=== PATIENT | female | born 1995 | race Caucasian/White ===

== ENCOUNTER 2018-12-26 18:40 | Observation (INO) | payer OTHER ==
[2018-12-26 19:18] VITALS: O2SAT 100
[2018-12-26] MEDS ORDERED: TYLENOL 325 MG ONE (21:05)
[2018-12-26] MEDS ORDERED: TYLENOL 325 MG PO PRN (21:05)
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
[2018-12-27 02:45] VITALS: BP 95/66; PULSE 66
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
== END 2018-12-27 00:31 | disposition home or self-care (01) ==
LOC: OB 18:40
PROVIDERS: ADMIT Family Medicine; ATTEND Family Medicine
DX: R10.9 Unspecified abdominal pain (principal); M54.6 Pain in thoracic spine; Z33.1 Pregnant state, incidental; V43.52XA Car driver injured in collision with other type car in traffic accident, initial encounter
CPT/HCPCS: 72080; G0378; A9270-GY

== ENCOUNTER 2020-10-13 07:03 | Day surgery (SDC) | payer OTHER ==
[2020-10-13] MEDS ORDERED: CEFAZOLIN 2 GM-D5W BAG** 2 GM/50 ML ML IV ONE (07:30)
[2020-10-13] MEDS ORDERED: Lactated Ringers 1,000 ML IV SCH (07:30)
[2020-10-13] MEDS ORDERED: CEFAZOLIN 2 GM-D5W BAG** 2 GM/50 ML ML IV SCH (07:30)
[2020-10-13] MEDS ORDERED: Lactated Ringers 1,000 ML IV ONE (07:30)
[2020-10-13] MEDS ORDERED: SUBLIMAZE 100 MCG/2 ML ONE ×2 (10:32→12:07)
[2020-10-13] MEDS ORDERED: Zofran 4 MG/2 ML VIAL ONE (10:32)
[2020-10-13] MEDS ORDERED: Decadron 4 MG INJ ONE (10:32)
[2020-10-13] MEDS ORDERED: Xylocaine-Mpf 2% 5 Ml Vial ONE (10:32)
[2020-10-13] MEDS ORDERED: DIPRIVAN 200 MG/20 ML IV ONE (10:32)
[2020-10-13] MEDS ORDERED: Compazine 10 MG/2 ML ONE (12:12)
[2020-10-13 13:04] VITALS: O2SAT 100
[2020-10-13 13:12] VITALS: BP 116/61; PULSE 75
--- NOTE | 2020-10-14 10:33 | OP ---
SURGERY DATE: 10/13/2020 SURGERY TIME: 1117 PREOPERATIVE DIAGNOSIS: 1. MENORRHAGIA WITH HISTORY OF DIDELPHYS UTERUS. POSTOPERATIVE DIAGNOSIS: 1. MENORRHAGIA WITH HISTORY OF DIDELPHYS UTERUS. PROCEDURE: 1. Hysteroscopy D&C with NovaSure ablation. SURGEON: Dr. Jesus Chadwick. STONE SETTER APPRENTICE: Tashi Tomas surgical scrub tech. ANESTHESIA: General. ESTIMATED BLOOD LOSS: Minimal. COMPLICATIONS: None. FINDINGS: The risks, benefits, indications, and alternatives of the procedure were reviewed with the patient prior to the procedure. Patient understood the risk of infection, bleeding, bowel injury, bladder injury, ureteral injury, uterine perforation, pelvic infection, thromboembolic disorder associated with this procedure. However, desires to have this procedure as a possible means to alleviate her current medical condition. DESCRIPTION OF PROCEDURE: At this point, the patient was taken to the OR, given general sedation, placed in the dorsal lithotomy position, prepped and draped in the usual sterile fashion. A weighted speculum was then placed in the patient's vagina and the anterior lip of the cervix was grasped with the single toothed tenaculum. There were 2 cervices that were noted due to her history of didelphys uterus where dilation of both was obtained and a 5 mm hysteroscope was placed into the endocervical canal region on both regions on both sides where a septum divided both sides of the uterus. Upon visualization, no gross abnormalities were noted other than the ostia was noted on her left side and there were no gross abnormalities on the surface with the septum the 2 sides and on her right side, the right ostia were noted and no gross abnormalities noted on that side. From this point, a curette was then placed into the fundal region of the uterus on both sides where curettage was performed retrieving a moderate amount of tissue on both sides. From this point, the NovaSure was then introduced and taken through the endocervical canal where on her left side the length was measured at 5.5 cm and the NovaSure was placed toward the fundal region retracting approximately 1 cm. It was engaged with the width of 2.6 cm and NovaSure was turned on for an ablated time of 1 minute, 36 seconds. After completion, the instrument was disengaged and removed from the uterine cavity where at this point, the right side of her uterus was subsequently ablated with the instrument placed on the right side with a length of 5.5 cm and the width of 2.6 cm. the ablated time took 50 seconds on her right side and we done so without complication. From this point, the instrument was disengaged and removed from the right uterine cavity. From this point, all instruments were then removed from the patient's vaginal region. The patient then taken out of the dorsal lithotomy position, was taken out of anesthesia, and was then taken to the recovery room in stable condition. All instruments and laps were accounted for X 2.
== END 2020-10-13 13:04 | disposition home or self-care (01) ==
LOC: SDC 07:03
PROVIDERS: ATTEND Obstetrics & Gynecology
DX: N92.0 Excessive and frequent menstruation with regular cycle (principal); Q51.10 Doubling of uterus with doubling of cervix and vagina without obstruction
CPT/HCPCS: 58558; 84703; J0690; J1100; J2405; J2704; J3010

== ENCOUNTER 2022-04-19 06:01 | Observation (INO) | payer OTHER, BC ==
[2022-04-19] MEDS ORDERED: Lactated Ringers 1,000 ML IV SCH (06:30)
[2022-04-19] MEDS ORDERED: CEFAZOLIN 2 GM-D5W BAG** 2 GM/50 ML ML IV SCH (06:30)
[2022-04-19 07:50] LABS: ABO TYPING O; Antibody Screen NEGATIVE (NEGATIVE); RH TYPING POSITIVE
[2022-04-19 07:52] LABS: ALBUMIN 4.1 g/dL (3.5-5.0); ALKALINE PHOSPHATASE 68 U/L (38-126); ANION GAP 6.3 MEQ/L (5-15); BLOOD UREA NITROGEN 8 mg/dL (7-17); CHLORIDE 107 mmol/L (98-107); Calcium 8.8 mg/dL (8.4-10.2); Carbon Dioxide 28 mmol/L (22-30); Creatinine 1 0.58 mg/dL (0.52-1.04); EST GLOMERULAR FILTRATION RATE > 60.0 ML/MIN; Glucose 95 mg/dL (74-106); Potassium 4.1 mmol/L (3.5-5.1); SGOT/AST 20 U/L (14-36); SGPT/ALT 16 U/L (0-35); SODIUM 137 mmol/L (137-145); Total Protein 6.8 g/dL (6.3-8.2)
[2022-04-19 08:03] LABS: INFLUENZA A NEGATIVE (NEGATIVE); INFLUENZA B NEGATIVE (NEGATIVE); RESPIRATORY SYNCTIAL VIRUS NEGATIVE (Negative); SARS-CoV-2 Xpert Express NEGATIVE (NEGATIVE)
[2022-04-19] MEDS ORDERED: Sensorcaine 0.25% 10 ML ONE (08:07)
[2022-04-19 08:25] LABS: Hematocrit 42.2 % (35-47); Hemoglobin 13.6 g/dL (12.0-16.0); Mean Corpuscular Hemoglobin 31.3 pg (26-32); Mean Corpuscular Hgb Concent. 32.2 g/dL (32-36); Mean Platelet Volume 11.8 fL (7.5-11.0); Platelet Count 139 x10^3/uL (150-450); Red Blood Count 4.35 x10^6/uL (4.1-5.4); Red Cell Distribution Width 11.8 % (11.5-14.0); White Blood Count 8.1 x10^3/uL (4.0-10.5)
[2022-04-19] MEDS ORDERED: Astramorph-Pf 5 MG/10 ML ONE (08:42)
[2022-04-19] MEDS ORDERED: SUBLIMAZE 100 MCG/2 ML ONE (08:42)
[2022-04-19] MEDS ORDERED: BRIDION 200MG/2ML IV ONE (08:42)
[2022-04-19] MEDS ORDERED: Zofran 4 MG/2 ML VIAL ONE (08:42)
[2022-04-19] MEDS ORDERED: Xylocaine-Mpf 2% 5 Ml Vial ONE (08:42)
[2022-04-19] MEDS ORDERED: Decadron 4 MG INJ ONE ×2 (08:42→09:22)
[2022-04-19] MEDS ORDERED: Transderm Scop 1.5MG Patch TOP ONE (08:42)
[2022-04-19] MEDS ORDERED: DIPRIVAN 200 MG/20 ML IV ONE (08:42)
[2022-04-19] MEDS ORDERED: Zemuron 100 MG/10 ML ONE (08:42)
[2022-04-19] MEDS ORDERED: TORAdol 30 mg Injection ONE (08:42)
[2022-04-19] MEDS ORDERED: Versed 2 MG/2 ML Injection ONE (08:44)
[2022-04-19] MEDS ORDERED: Lactated Ringers 1,000 ML IV ONE (09:11)
[2022-04-19] MEDS ORDERED: BENADRYL 50 MG/ML ONE (09:13)
[2022-04-19] MEDS ORDERED: DEXMEDETOMIDINE 80 MCG/20ML-NS IV ONE (09:22)
[2022-04-19] MEDS ORDERED: Marcaine 0.5%/Epinephrine 10 ML ONE (09:22)
[2022-04-19] MEDS ORDERED: Zofran 4 MG/2 ML VIAL IV PRN (13:37)
[2022-04-19] MEDS ORDERED: TORAdol 30 mg Injection IV PRN (13:38)
[2022-04-19] MEDS: Mylicon 80MG PO SCH ×2 (13:46→20:39)
[2022-04-19] MEDS: Reglan 10 MG/2 ML IV SCH ×2 (13:46→20:39)
[2022-04-19] MEDS: Lactated Ringers 1,000 ML IV SCH ×2 (13:47→20:39)
[2022-04-19] MEDS: CEFAZOLIN 2 GM-D5W BAG** 2 GM/50 ML ML IV SCH ×2 (15:59→23:53)
[2022-04-19 18:11] LABS: Absolute Neutrophil Ct (ANC) 12.12 x10^3/uL (1.4-6.9); Basophil (Absolute #) 0.01 x10^3/uL (0-0.4); Eosinophil (Absolute #) 0 x10^3/uL (0-0.5); Hematocrit 37.7 % (35-47); Hemoglobin 12.4 g/dL (12.0-16.0); Lymphocyte (Absolute #) 0.39 x10^3/uL (1.0-4.6); Lymphocytes % 3.1 % (24.0-44.0); Mean Cell Volume 94.5 fL (78-100); Mean Corpuscular Hemoglobin 31.1 pg (26-32); Mean Corpuscular Hgb Concent. 32.9 g/dL (32-36); Mean Platelet Volume 10.7 fL (7.5-11.0); Monocyte (Absolute #) 0.17 x10^3/uL (0.0-1.3); Monocytes % 1.3 % (0.0-12.0); Neutrophil % 95.1 % (36.0-66.0); Red Blood Count 3.99 x10^6/uL (4.1-5.4); Red Cell Distribution Width 11.6 % (11.5-14.0); White Blood Count 12.7 x10^3/uL (4.0-10.5)
[2022-04-19 18:12] LABS: Platelet Count 222 x10^3/uL (150-450)
[2022-04-19] MEDS ORDERED: Docusate Sodium 100 MG PO SCH (22:00)
[2022-04-19 22:48] LABS: Slide Review 1 YES
[2022-04-20 05:05] LABS: Absolute Neutrophil Ct (ANC) 11.05 x10^3/uL (1.4-6.9); Basophil (Absolute #) 0.01 x10^3/uL (0-0.4); Eosinophil % 0.1 % (0.00-5.0); Eosinophil (Absolute #) 0.01 x10^3/uL (0-0.5); Hemoglobin 10.8 g/dL (12.0-16.0); Lymphocyte (Absolute #) 1.34 x10^3/uL (1.0-4.6); Lymphocytes % 10.1 % (24.0-44.0); Mean Cell Volume 94.8 fL (78-100); Mean Corpuscular Hgb Concent. 32.7 g/dL (32-36); Mean Platelet Volume 10.4 fL (7.5-11.0); Monocyte (Absolute #) 0.88 x10^3/uL (0.0-1.3); Monocytes % 6.6 % (0.0-12.0); Neutrophil % 82.9 % (36.0-66.0); Platelet Count 166 x10^3/uL (150-450); Red Blood Count 3.48 x10^6/uL (4.1-5.4); Red Cell Distribution Width 11.8 % (11.5-14.0); White Blood Count 13.3 x10^3/uL (4.0-10.5)
[2022-04-20] MEDS: Mylicon 80MG PO SCH (05:06)
[2022-04-20] MEDS: Reglan 10 MG/2 ML IV SCH (05:07)
[2022-04-20 05:19] LABS: ALBUMIN 3.1 g/dL (3.5-5.0); ALKALINE PHOSPHATASE 55 U/L (38-126); ANION GAP 6.6 MEQ/L (5-15); BLOOD UREA NITROGEN 7 mg/dL (7-17); CHLORIDE 106 mmol/L (98-107); Calcium 8.5 mg/dL (8.4-10.2); Carbon Dioxide 24 mmol/L (22-30); Creatinine 1 0.53 mg/dL (0.52-1.04); EST GLOMERULAR FILTRATION RATE > 60.0 ML/MIN; Glucose 127 mg/dL (74-106); Potassium 3.8 mmol/L (3.5-5.1); SGOT/AST 24 U/L (14-36); SGPT/ALT 19 U/L (0-35); SODIUM 133 mmol/L (137-145); Total Protein 5.5 g/dL (6.3-8.2)
[2022-04-20] MEDS: Lactated Ringers 1,000 ML IV SCH (06:21)
[2022-04-20 07:47] VITALS: BP 104/58; PULSE 60; O2SAT 98
--- NOTE | 2022-04-20 07:51 | PCM.NOTE ---
Date and Time: 04/20/22747 Subjective Assessment: pod 1 pt resting in bed able to ambulate and tolerate diet. vss afebrile abd; soft incision c/d/intact ext; no clubbing cyanosis or edema hgb; 10.8 a/p sp laparotomy supracervical hysterectomy stable for discharge today should fu in office next monday Objective Exam Wound Assessment: Skin/Wound Assessment Wound/Incision Assessment Start: 04/19/22 11:13 Text: Status: Active Freq: Q4H Protocol: Document 04/20/22 03:41 KS (Rec: 04/20/22 03:42 KS [id number]) Wound/Incision Assessment Lower Abdomen Wound Assessment Shift Assessment Wound Type Incision Drainage Amount None Comment dressing to lower abd CDi. OBJECTIVE DATA Vital Signs: Vital Signs - 24 hr Temp Pulse Resp BP Pulse Ox 04/20/22 07:46 97.7 F 60 18 104/58 98 04/20/22 04:00 96.9 F 56 L 20 89/46 97 04/20/22 00:00 97.8 F 62 16 90/54 95 04/19/22 23:55 18 04/19/22 20:00 98.6 F 69 20 104/59 94 L 04/19/22 16:00 14 04/19/22 15:11 98.9 F 84 14 108/57 97 04/19/22 12:50 97.5 F 67 16 105/61 93 L 04/19/22 12:15 97.3 F 68 16 96/61 89 L 04/19/22 12:00 14 04/19/22 11:45 97.9 F 63 16 105/63 94 L 04/19/22 11:30 97.9 F 73 16 110/67 93 L 04/19/22 11:25 97.9 F 73 16 110/67 93 L Pain Assessment - Last Documented Pain Intensity 7 Intake and Output: Intake & Output 04/17/22 04/18/22 04/19/22 04/20/22 11:59 11:59 11:59 11:59 Intake Total 0 0 3471 Output Total 1625 Balance 0 0 1846 Weight 88.9 kg Lab Results: Lab Results-Last 24 Hours 04/19/22 04/19/22 04/19/22 Range/Units 06:41 06:41 06:41 WBC 8.1 (4.0-10.5) x10^3/uL RBC 4.35 (4.1-5.4) x10^6/uL Hgb 13.6 (12.0-16.0) g/dL Hct 42.2 (35-47) % MCV 97.0 (78-100) fL MCH 31.3 (26-32) pg MCHC 32.2 (32-36) g/dL RDW 11.8 (11.5-14.0) % Plt Count 139 L (150-450) x10^3/uL MPV 11.8 H (7.5-11.0) fL Gran % (36.0-66.0) % Immature Gran % (Auto) (0.00-0.4) % Nucleat RBC Rel Count (0.00-0.1) % Eos # (Auto) (0-0.5) x10^3/uL Immature Gran # (Auto) (0.00-0.03) x10^3u/L Absolute Lymphs (auto) (1.0-4.6) x10^3/uL Absolute Monos (auto) (0.0-1.3) x10^3/uL Absolute Nucleated RBC (0.00-0.01) x10^3u/L Lymphocytes % (24.0-44.0) % Monocytes % (0.0-12.0) % Eosinophils % (0.00-5.0) % Basophils % (0.0-0.4) % Absolute Granulocytes (1.4-6.9) x10^3/uL Basophils # (0-0.4) x10^3/uL Sodium 137 (137-145) mmol/L Potassium 4.1 (3.5-5.1) mmol/L Chloride 107 (98-107) mmol/L Carbon Dioxide 28 (22-30) mmol/L Anion Gap 6.3 (5-15) MEQ/L BUN 8 (7-17) mg/dL Creatinine 0.58 (0.52-1.04) mg/dL Estimated GFR > 60.0 ML/MIN Glucose 95 (74-106) mg/dL Calcium 8.8 (8.4-10.2) mg/dL Total Bilirubin 0.30 (0.2-1.3) mg/dL AST 20 (14-36) U/L ALT 16 (0-35) U/L Alkaline Phosphatase 68 (38-126) U/L Serum Total Protein 6.8 (6.3-8.2) g/dL Albumin 4.1 (3.5-5.0) g/dL Influenza Type A Ag (NEGATIVE) Influenza Type B Ag (NEGATIVE) RSV (PCR) (Negative) SARS-CoV-2 (PCR) (NEGATIVE) Slides for Path Review ABO Group O Rh Factor POSITIVE Antibody Screen NEGATIVE (NEGATIVE) 04/19/22 04/19/22 04/20/22 Range/Units 06:50 17:47 04:56 WBC 12.7 H 13.3 H (4.0-10.5) x10^3/uL RBC 3.99 L 3.48 L (4.1-5.4) x10^6/uL Hgb 12.4 10.8 L (12.0-16.0) g/dL Hct 37.7 33.0 L (35-47) % MCV 94.5 94.8 (78-100) fL MCH 31.1 31.0 (26-32) pg MCHC 32.9 32.7 (32-36) g/dL RDW 11.6 11.8 (11.5-14.0) % Plt Count 222 D 166 (150-450) x10^3/uL MPV 10.7 10.4 (7.5-11.0) fL Gran % 95.1 H 82.9 H (36.0-66.0) % Immature Gran % (Auto) 0.4 0.2 (0.00-0.4) % Nucleat RBC Rel Count 0.0 0.0 (0.00-0.1) % Eos # (Auto) 0 0.01 (0-0.5) x10^3/uL Immature Gran # (Auto) 0.05 H 0.03 (0.00-0.03) x10^3u/L Absolute Lymphs (auto) 0.39 L 1.34 (1.0-4.6) x10^3/uL Absolute Monos (auto) 0.17 0.88 (0.0-1.3) x10^3/uL Absolute Nucleated RBC 0.00 0.00 (0.00-0.01) x10^3u/L Lymphocytes % 3.1 L 10.1 L (24.0-44.0) % Monocytes % 1.3 6.6 (0.0-12.0) % Eosinophils % 0.0 0.1 (0.00-5.0) % Basophils % 0.1 0.1 (0.0-0.4) % Absolute Granulocytes 12.12 H 11.05 H (1.4-6.9) x10^3/uL Basophils # 0.01 0.01 (0-0.4) x10^3/uL Sodium (137-145) mmol/L Potassium (3.5-5.1) mmol/L Chloride (98-107) mmol/L Carbon Dioxide (22-30) mmol/L Anion Gap (5-15) MEQ/L BUN (7-17) mg/dL Creatinine (0.52-1.04) mg/dL Estimated GFR ML/MIN Glucose (74-106) mg/dL Calcium (8.4-10.2) mg/dL Total Bilirubin (0.2-1.3) mg/dL AST (14-36) U/L ALT (0-35) U/L Alkaline Phosphatase (38-126) U/L Serum Total Protein (6.3-8.2) g/dL Albumin (3.5-5.0) g/dL Influenza Type A Ag NEGATIVE (NEGATIVE) Influenza Type B Ag NEGATIVE (NEGATIVE) RSV (PCR) NEGATIVE (Negative) SARS-CoV-2 (PCR) NEGATIVE (NEGATIVE) Slides for Path Review YES ABO Group Rh Factor Antibody Screen (NEGATIVE) 04/20/22 Range/Units 04:56 WBC (4.0-10.5) x10^3/uL RBC (4.1-5.4) x10^6/uL Hgb (12.0-16.0) g/dL Hct (35-47) % MCV (78-100) fL MCH (26-32) pg MCHC (32-36) g/dL RDW (11.5-14.0) % Plt Count (150-450) x10^3/uL MPV (7.5-11.0) fL Gran % (36.0-66.0) % Immature Gran % (Auto) (0.00-0.4) % Nucleat RBC Rel Count (0.00-0.1) % Eos # (Auto) (0-0.5) x10^3/uL Immature Gran # (Auto) (0.00-0.03) x10^3u/L Absolute Lymphs (auto) (1.0-4.6) x10^3/uL Absolute Monos (auto) (0.0-1.3) x10^3/uL Absolute Nucleated RBC (0.00-0.01) x10^3u/L Lymphocytes % (24.0-44.0) % Monocytes % (0.0-12.0) % Eosinophils % (0.00-5.0) % Basophils % (0.0-0.4) % Absolute Granulocytes (1.4-6.9) x10^3/uL Basophils # (0-0.4) x10^3/uL Sodium 133 L (137-145) mmol/L Potassium 3.8 (3.5-5.1) mmol/L Chloride 106 (98-107) mmol/L Carbon Dioxide 24 (22-30) mmol/L Anion Gap 6.6 (5-15) MEQ/L BUN 7 (7-17) mg/dL Creatinine 0.53 (0.52-1.04) mg/dL Estimated GFR > 60.0 ML/MIN Glucose 127 H (74-106) mg/dL Calcium 8.5 (8.4-10.2) mg/dL Total Bilirubin 0.20 (0.2-1.3) mg/dL AST 24 (14-36) U/L ALT 19 (0-35) U/L Alkaline Phosphatase 55 (38-126) U/L Serum Total Protein 5.5 L (6.3-8.2) g/dL Albumin 3.1 L (3.5-5.0) g/dL Influenza Type A Ag (NEGATIVE) Influenza Type B Ag (NEGATIVE) RSV (PCR) (Negative) SARS-CoV-2 (PCR) (NEGATIVE) Slides for Path Review ABO Group Rh Factor Antibody Screen (NEGATIVE) Assessment/Plan (1) History of abdominal supracervical subtotal hysterectomy Current Visit: Yes Status: Acute Code(s): Z90.711 - ACQUIRED ABSENCE OF UTERUS WITH REMAINING CERVICAL STUMP (2) S/P abdominal supracervical subtotal hysterectomy Current Visit: Yes Status: Acute Code(s): Z90.711 - ACQUIRED ABSENCE OF UTERUS WITH REMAINING CERVICAL STUMP (3) Abnormal uterine bleeding Current Visit: Yes Status: Acute Code(s): N93.9 - ABNORMAL UTERINE AND VAGINAL BLEEDING, UNSPECIFIED
--- NOTE | 2022-04-20 07:58 | PCM.DS ---
Discharge Summary Date of Admission: 04/19/22 06:16 Admitting Physician: KENDRA MONTGOMERY DO Primary Care Provider: PAUL DICK Allergies Allergies No Known Drug Allergies Allergy (Verified 04/19/22 11:20) Hospital Summary - Hospital Course Hospital Course: pt admitted on apr 19 for undergoing laparotomy supracervical hysterectomy for abnormal uterine bleeding and postablation sterilization syndrome. pt underwent procedure without complication and was able to ambulate and tolerate diet. stable hgb 10.8 and was advised to fu in office in 1 wk for incision check. all questions answered to her satisfaction. pt given norco for pain management and zofran for nausea. - Vitals & Intake/Output Vital Signs: Vital Signs Temperature 97.7 F 04/20/22 07:46 Pulse Rate 60 04/20/22 07:46 Respiratory Rate 18 04/20/22 07:46 Blood Pressure 104/58 04/20/22 07:46 O2 Sat by Pulse Oximetry 98 04/20/22 07:46 Intake & Output: Intake & Output 04/17/22 04/18/22 04/19/22 04/20/22 11:59 11:59 11:59 11:59 Intake Total 0 0 3471 Output Total 1625 Balance 0 0 1846 Weight 88.9 kg - Lab Result Diagrams: 04/20/22 04:56 04/20/22 04:56 Lab Results-Last 24 Hrs: Lab Results-Last 24 Hours 04/19/22 04/19/22 04/19/22 Range/Units 06:41 06:41 06:50 WBC 8.1 (4.0-10.5) x10^3/uL RBC 4.35 (4.1-5.4) x10^6/uL Hgb 13.6 (12.0-16.0) g/dL Hct 42.2 (35-47) % MCV 97.0 (78-100) fL MCH 31.3 (26-32) pg MCHC 32.2 (32-36) g/dL RDW 11.8 (11.5-14.0) % Plt Count 139 L (150-450) x10^3/uL MPV 11.8 H (7.5-11.0) fL Gran % (36.0-66.0) % Immature Gran % (Auto) (0.00-0.4) % Nucleat RBC Rel Count (0.00-0.1) % Eos # (Auto) (0-0.5) x10^3/uL Immature Gran # (Auto) (0.00-0.03) x10^3u/L Absolute Lymphs (auto) (1.0-4.6) x10^3/uL Absolute Monos (auto) (0.0-1.3) x10^3/uL Absolute Nucleated RBC (0.00-0.01) x10^3u/L Lymphocytes % (24.0-44.0) % Monocytes % (0.0-12.0) % Eosinophils % (0.00-5.0) % Basophils % (0.0-0.4) % Absolute Granulocytes (1.4-6.9) x10^3/uL Basophils # (0-0.4) x10^3/uL Sodium 137 (137-145) mmol/L Potassium 4.1 (3.5-5.1) mmol/L Chloride 107 (98-107) mmol/L Carbon Dioxide 28 (22-30) mmol/L Anion Gap 6.3 (5-15) MEQ/L BUN 8 (7-17) mg/dL Creatinine 0.58 (0.52-1.04) mg/dL Estimated GFR > 60.0 ML/MIN Glucose 95 (74-106) mg/dL Calcium 8.8 (8.4-10.2) mg/dL Total Bilirubin 0.30 (0.2-1.3) mg/dL AST 20 (14-36) U/L ALT 16 (0-35) U/L Alkaline Phosphatase 68 (38-126) U/L Serum Total Protein 6.8 (6.3-8.2) g/dL Albumin 4.1 (3.5-5.0) g/dL Influenza Type A Ag NEGATIVE (NEGATIVE) Influenza Type B Ag NEGATIVE (NEGATIVE) RSV (PCR) NEGATIVE (Negative) SARS-CoV-2 (PCR) NEGATIVE (NEGATIVE) Slides for Path Review 04/19/22 04/20/22 04/20/22 Range/Units 17:47 04:56 04:56 WBC 12.7 H 13.3 H (4.0-10.5) x10^3/uL RBC 3.99 L 3.48 L (4.1-5.4) x10^6/uL Hgb 12.4 10.8 L (12.0-16.0) g/dL Hct 37.7 33.0 L (35-47) % MCV 94.5 94.8 (78-100) fL MCH 31.1 31.0 (26-32) pg MCHC 32.9 32.7 (32-36) g/dL RDW 11.6 11.8 (11.5-14.0) % Plt Count 222 D 166 (150-450) x10^3/uL MPV 10.7 10.4 (7.5-11.0) fL Gran % 95.1 H 82.9 H (36.0-66.0) % Immature Gran % (Auto) 0.4 0.2 (0.00-0.4) % Nucleat RBC Rel Count 0.0 0.0 (0.00-0.1) % Eos # (Auto) 0 0.01 (0-0.5) x10^3/uL Immature Gran # (Auto) 0.05 H 0.03 (0.00-0.03) x10^3u/L Absolute Lymphs (auto) 0.39 L 1.34 (1.0-4.6) x10^3/uL Absolute Monos (auto) 0.17 0.88 (0.0-1.3) x10^3/uL Absolute Nucleated RBC 0.00 0.00 (0.00-0.01) x10^3u/L Lymphocytes % 3.1 L 10.1 L (24.0-44.0) % Monocytes % 1.3 6.6 (0.0-12.0) % Eosinophils % 0.0 0.1 (0.00-5.0) % Basophils % 0.1 0.1 (0.0-0.4) % Absolute Granulocytes 12.12 H 11.05 H (1.4-6.9) x10^3/uL Basophils # 0.01 0.01 (0-0.4) x10^3/uL Sodium 133 L (137-145) mmol/L Potassium 3.8 (3.5-5.1) mmol/L Chloride 106 (98-107) mmol/L Carbon Dioxide 24 (22-30) mmol/L Anion Gap 6.6 (5-15) MEQ/L BUN 7 (7-17) mg/dL Creatinine 0.53 (0.52-1.04) mg/dL Estimated GFR > 60.0 ML/MIN Glucose 127 H (74-106) mg/dL Calcium 8.5 (8.4-10.2) mg/dL Total Bilirubin 0.20 (0.2-1.3) mg/dL AST 24 (14-36) U/L ALT 19 (0-35) U/L Alkaline Phosphatase 55 (38-126) U/L Serum Total Protein 5.5 L (6.3-8.2) g/dL Albumin 3.1 L (3.5-5.0) g/dL Influenza Type A Ag (NEGATIVE) Influenza Type B Ag (NEGATIVE) RSV (PCR) (Negative) SARS-CoV-2 (PCR) (NEGATIVE) Slides for Path Review YES Discharge Exam Wound Assessment: Skin/Wound Assessment Wound/Incision Assessment Start: 04/19/22 11:13 Text: Status: Active Freq: Q4H Protocol: Document 04/20/22 03:41 GA (Rec: 04/20/22 03:42 GA [id number]) Wound/Incision Assessment Lower Abdomen Wound Assessment Shift Assessment Wound Type Incision Drainage Amount None Comment dressing to lower abd CDi. Final Diagnosis/Problem List - Final Discharge Diagnosis/Problem (1) History of abdominal supracervical subtotal hysterectomy Current Visit: Yes Status: Acute Code(s): Z90.711 - ACQUIRED ABSENCE OF UTERUS WITH REMAINING CERVICAL STUMP (2) S/P abdominal supracervical subtotal hysterectomy Current Visit: Yes Status: Acute Code(s): Z90.711 - ACQUIRED ABSENCE OF UTERUS WITH REMAINING CERVICAL STUMP (3) Abnormal uterine bleeding Current Visit: Yes Status: Acute Code(s): N93.9 - ABNORMAL UTERINE AND VAGINAL BLEEDING, UNSPECIFIED - Discharge Disposition: Home, Self-Care Condition: Stable Prescriptions: New Hydrocodone/Acetaminophen [Hydrocodone-Acetamin 5-325 mg] 1 each PO Q6HPRN PRN #20 tablet MDD 4 PRN Reason: Pain Ondansetron ODT 4 MG [Zofran Odt 4 mg] 4 mg PO Q6H PRN PRN #10 tablet MDD 4 PRN Reason: Nausea No Action buPROPion HCL [Bupropion Xl] 150 mg PO DAILY Follow up with: PAUL DICK NP [Primary Care Provider] - KENDRA MONTGOMERY DO [ACTIVE STAFF] - 1 Week (keep incision clean)
--- NOTE | 2022-04-20 08:20 | OP ---
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 PROCEDURE: Laparotomy, supracervical hysterectomy. SURGEON: Jesus Chadwick D.O. SALES ENGINEERING MANAGER: Adrienne Lenz and Jennifer England, surgical rn. ANESTHESIA: General. ESTIMATED BLOOD LOSS: 100 cc. COMPLICATIONS: None. INDICATIONS: The risks, benefits, indications and alternatives of the procedure were reviewed with the patient prior to the procedure. The patient understood the risk of infection, bleeding, bowel injury, bladder injury, ureteral injury, uterine perforation, pelvic infection and thromboembolic disorder associated with this surgery and desires to have this surgery as a possible means to alleviate her current medical condition. DESCRIPTION OF PROCEDURE AND FINDINGS: At this point the patient is taken to the operating room and placed in the supine position where she was given general anesthesia. She was prepared and draped in the usual sterile fashion. A Pfannenstiel incision was made approximately 2 cm above the symphysis pubis and extended sharply through the rectus fascia. The fascia was then incised bilaterally with curved Westbrook scissors and the muscles of the anterior abdominal wall were in the midline by sharp and blunt dissection. The peritoneum was then grasped between two pickups elevated and entered sharply with Metzenbaum scissors. The pelvis was then examined and noted to have an approximately 9 to 10 week size uterus. From this point, O'Steve-O'Vásquez retractor was placed into the incision and the bowel packed away with moist laparotomy sponges. A tenaculum is used to place the instrument on the fundus of the uterus to retract and lift the uterus. From this point the LigaSure was then used and LigaSure was placed on the left utero-ovarian ligament where it was clamped, coagulated, cut and taken down to the round ligament towards the uterine vasculature on its left side. The uterine vasculature was skeletonized after the anterior leaflet of the broad ligament was incised along the bladder reflection. The same procedure was performed on the right side where the right utero-ovarian ligament was clamped, coagulated and cut and taken down to the round ligament towards the uterine vasculature where it to was skeletonized. From this point the uterine vasculature was clamped with Sarah clamps transected and suture ligated with 0 Vicryl suture on both sides. Hemostasis was assured. After clamping of the uterine vasculature, the uterus is elevated and the Bovie clamp was used to amputate the uterus from the cervical region and was done so without complication. Hemostasis was obtained. After complete amputation of the uterus, sutures were placed on the cervical stump region to reperitonealize the cervical region. Again hemostasis was assured. From this point the pelvis is then irrigated copiously with warm normal saline. From this point all operative sponges and instruments were then removed from the patient's abdomen. The fascia was then closed with running 0 Vicryl suture. The muscles and peritoneum were closed in interrupted fashion with 2-0 chromic suture, subcutaneous layer was closed with 3-0 Vicryl suture and the skin was closed with absorbable lynn called INSORB. Sponge, lap, needle and instruments counts were correct x2. The patient was then taken out of anesthesia and was then taken to the recovery room in stable condition.
[2022-04-20] MEDS ORDERED: ENOXAPARIN SODIUM SQ SCH (10:00)
[2022-04-20] MEDS ORDERED: Wellbutrin XL 150 MG PO SCH (10:00)
== END 2022-04-20 09:30 | disposition home or self-care (01) ==
LOC: SDC 06:01 → MED SURG 06:16
PROVIDERS: ADMIT Obstetrics & Gynecology; ATTEND Obstetrics & Gynecology
DX: N93.9 Abnormal uterine and vaginal bleeding, unspecified (principal); N99.85 Post endometrial ablation syndrome; Z79.899 Other long term (current) drug therapy; Z20.828 Contact with and (suspected) exposure to other viral communicable diseases
CPT/HCPCS: 0241U; 36415; 58180; 80053; 81025; 85025; 85027; 86850; 86900; 86901; G0378; J0690; J1100; J1200; J1885; J2250; J2274; J2405; J2704; J3010; A9270-GY

== ENCOUNTER 2022-04-21 12:22 | Emergency (ER) | payer OTHER, BC ==
--- NOTE | 2022-04-21 12:23 | ERPHSYRPT ---
- History of Present Illness Time Seen by Provider: 04/21/22 12:23 Source: patient Exam Limitations: no limitations Physician History: This is a 27-year-old white female patient of nurse practitioner Octavio and Dr. Chadwick assistant child care teacher. Patient is status post a supracervical hysterectomy through Pfannenstiel incision on 04/19/2022. Postoperatively, patient was discharged home on 04/20/2022 with a prescription for [employer] and Zofran. Patient was having some right shoulder pain postoperatively. However, the pain worsened and traveled across her chest to the left shoulder. She is now having bilateral shoulder pain. She is not short of breath but she has some upper chest pain with deep inspiration. She did not injure her shoulders. She has no cough. She has no increase in her postoperative abdominal/incisional pain. Patient took a [employer] 5/325 at noon prior to arrival. She states this did not help her pain much at all. Occurred: this morning Method of Injury: other (No injury) Quality: aching, sharpness Severity of Pain-Max: moderate Severity of Pain-Current: moderate Extremities Pain Location: shoulder: bilateral Modifying Factors: Improves With: movement Associated Symptoms: No chest pain, No fever, No short of breath Allergies/Adverse Reactions: No Known Drug Allergies Allergy (Verified 04/21/22 12:32) Travel Risk - International Travel Have you traveled outside of the country in past 3 weeks: No - Coronavirus Screening Are you exhibiting any of the following symptoms?: No Close contact with a COVID-19 positive Pt in past 14-21 Days: No - Vaccine Status Have you recieved a Covid-19 vaccination: Yes [employer]: [employer] - Review of Systems Constitutional: No Symptoms Eyes: No Symptoms Ears, Nose, & Throat: No Symptoms Respiratory: No Cough, No Dyspnea Cardiac: No Chest Pain Abdominal/Gastrointestinal: No Symptoms Genitourinary Symptoms: No Symptoms Musculoskeletal: Joint Pain (Bilateral shoulders) Skin: No Symptoms Neurological: No Symptoms Psychological: No Symptoms Endocrine: No Symptoms Hematologic/Lymphatic: No Symptoms Immunological/Allergic: No Symptoms All Other Systems: Reviewed and Negative - Past Medical History Pertinent Past Medical History: No Neurological History: No Pertinent History ENT History: No Pertinent History Cardiac History: No Pertinent History Respiratory History: No Pertinent History Endocrine Medical History: No Pertinent History Musculoskeletal History: No Pertinent History GI Medical History: No Pertinent History History: No Pertinent History Psycho-Social History: No Pertinent History Female Reproductive Disorders: No Pertinent History Other Medical History: 2 uterus,2cervix - Past Surgical History Past Surgical History: Yes Neuro Surgical History: No Pertinent History Cardiac: No Pertinent History Respiratory: No Pertinent History Gastrointestinal: No Pertinent History Genitourinary: No Pertinent History Musculoskeletal: No Pertinent History Female Surgical History: Tubal Ligation Other Surgical History: IUD removal,Uterus removal,septum joined uterus,blood flow checked to ovaries, 2 c-sections - Social History Smoking Status: Never smoker Exposure to second hand smoke: No Drug Use: none - Nursing Vital Signs Nursing Vital Signs: Initial Vital Signs Temperature 97.9 F 04/21/22 12:34 Pulse Rate 94 H 04/21/22 12:34 Respiratory Rate 20 04/21/22 12:34 Blood Pressure 141/88 04/21/22 12:34 O2 Sat by Pulse Oximetry 98 04/21/22 12:34 Pain Scale Pain Intensity 2 - Physical Exam General Appearance: no apparent distress, alert, anxiety Eyes, Ears, Nose, Throat Exam: normal ENT inspection, moist mucous membranes Neck Exam: normal inspection, non-tender, supple, full range of motion Cardiovascular/Respiratory Exam: chest non-tender, normal breath sounds, regular rate/rhythm, heart sounds normal, no respiratory distress Abdominal Exam: non-tender Back Exam: normal inspection, normal range of motion, No CVA tenderness, No vertebral tenderness Shoulder Exam: normal inspection, no evidence of injury, normal ROM Elbow/Forearm Exam: normal inspection, non-tender, no evidence of injury, normal ROM Wrist Exam: normal inspection, non-tender, no evidence of injury, normal ROM Hand Exam: normal inspection, non-tender, no evidence of injury, normal ROM Neuro/Tendon Exam: normal sensation, normal motor functions, normal tendon functions Mental Status Exam: alert, oriented x 3, cooperative Skin Exam: normal color, warm, dry SpO2 Interpretation: normal O2 Delivery: Room Air - Course Nursing assessment & vital signs reviewed: Yes EKG Interpreted by Me: RATE ([id number]), Sinus Rhythm, NORMAL AXIS, NORMAL INTERVALS, NORMAL QRS, NORMAL ST-T, Other (No acute ischemic changes on today's twelve-lead EKG.) Ordered Tests: Active Orders 24 hr Category Date Time Status IV Insertion STAT Care 04/21/22 12:54 Active CHEST WITH CONTRAST [CT] Stat Exams 04/21/22 13:48 Completed CBC W DIFF Stat Lab 04/21/22 13:00 Completed CMP Stat Lab 04/21/22 13:00 Completed D-DIMER QUANTITATIVE Stat Lab 04/21/22 13:00 Completed Medication Summary Discontinued Medications Generic Name Dose Route Start Last Admin Trade Name Freq PRN Reason Stop Dose Admin Hydromorphone HCl 0.5 mg 04/21/22 13:19 04/21/22 13:45 Hydromorphone 1 Mg/1ml Inj 1 Mg/Ml Syringe IV 04/21/22 13:20 0.5 mg STAT ONE Administration Hydromorphone HCl Confirm 04/21/22 13:42 Hydromorphone 1 Mg/1ml Inj 1 Mg/Ml Syringe Administered 04/21/22 13:43 Dose 1 mg .ROUTE .STK-MED ONE Sodium Chloride 500 mls @ 500 mls/hr 04/21/22 13:49 Sodium Chloride 0.9% 500 Ml IV 04/21/22 14:48 .Q1H ONE Ondansetron HCl 4 mg 04/21/22 13:19 04/21/22 13:44 Ondansetron Hcl 4 Mg/2 Ml Vial IV 04/21/22 13:20 4 mg STAT ONE Administration Ondansetron HCl Confirm 04/21/22 13:41 Ondansetron Hcl 4 Mg/2 Ml Vial Administered 04/21/22 13:42 Dose 4 mg .ROUTE .STK-MED ONE Lab/Rad Data: Laboratory Result Diagrams 04/21/22 13:00 04/21/22 13:00 Laboratory Results 04/21/22 04/21/22 04/21/22 Range/Units 13:00 13:00 13:00 WBC 8.6 (4.0-10.5) x10^3/uL RBC 3.64 L (4.1-5.4) x10^6/uL Hgb 11.4 L (12.0-16.0) g/dL Hct 34.5 L (35-47) % MCV 94.8 (78-100) fL MCH 31.3 (26-32) pg MCHC 33.0 (32-36) g/dL RDW 11.9 (11.5-14.0) % Plt Count 200 (150-450) x10^3/uL MPV 10.6 (7.5-11.0) fL Gran % 74.2 H (36.0-66.0) % Immature Gran % (Auto) 0.2 (0.00-0.4) % Nucleat RBC Rel Count 0.0 (0.00-0.1) % Eos # (Auto) 0.09 (0-0.5) x10^3/uL Immature Gran # (Auto) 0.02 (0.00-0.03) x10^3u/L Absolute Lymphs (auto) 1.31 (1.0-4.6) x10^3/uL Absolute Monos (auto) 0.77 (0.0-1.3) x10^3/uL Absolute Nucleated RBC 0.00 (0.00-0.01) x10^3u/L Lymphocytes % 15.3 L (24.0-44.0) % Monocytes % 9.0 (0.0-12.0) % Eosinophils % 1.1 (0.00-5.0) % Basophils % 0.2 (0.0-0.4) % Absolute Granulocytes 6.34 (1.4-6.9) x10^3/uL Basophils # 0.02 (0-0.4) x10^3/uL D-Dimer 1.56 H* (0.0-0.50) mg/L Sodium 137 (137-145) mmol/L Potassium 3.6 (3.5-5.1) mmol/L Chloride 105 (98-107) mmol/L Carbon Dioxide 28 (22-30) mmol/L Anion Gap 7.8 (5-15) MEQ/L BUN 7 (7-17) mg/dL Creatinine 0.47 L (0.52-1.04) mg/dL Estimated GFR > 60.0 ML/MIN Glucose 91 (74-106) mg/dL Calcium 8.6 (8.4-10.2) mg/dL Total Bilirubin 0.40 (0.2-1.3) mg/dL AST 43 H (14-36) U/L ALT 27 (0-35) U/L Alkaline Phosphatase 57 (38-126) U/L Serum Total Protein 6.8 (6.3-8.2) g/dL Albumin 3.9 (3.5-5.0) g/dL - Progress Progress: improved, pain not gone completely Progress Note: 04/21/22 13:17 Medical decision making: This patient did not have any injury to her shoulders. She is 2 days postoperative from her supracervical hysterectomy. Likely, there is some blood irritating the patient's diaphragm and referring the pain to her shoulders. However, it is not unreasonable to check a D-dimer to evaluate for possible blood clot. The D-dimer will likely be elevated since she just had a surgical procedure. I spoke with the patient and if this is elevated we will perform a CTA of the chest. We will also check her kidney function and a hemoglobin level. Patient has no complaints of any calf pain or calf swelling. 04/21/22 14:49 I called the patient's assistant child care teacher and left a message on his cell phone regarding this visit. 04/21/22 14:51 CT of the chest shows no acute cardiopulmonary processes. There is no evidence of pulmonary embolus. Counseled pt/family regarding: lab results, diagnosis, need for follow-up, rad results - Departure Departure Disposition: Home Clinical Impression: Bilateral shoulder pain Condition: Stable Critical Care Time: No Referrals: PAUL DICK NP [Primary Care Provider] - Follow up/PCP as directed Additional Instructions: Continue your pain medicine as prescribed. Follow-up with your surgeon at your scheduled follow-up appointment time.
[2022-04-21] MEDS ORDERED: Hydromorphone 1 mg/ml Injection IV ONE (13:19)
[2022-04-21] MEDS ORDERED: Zofran 4 MG/2 ML VIAL IV ONE (13:19)
[2022-04-21 13:23] LABS: Absolute Neutrophil Ct (ANC) 6.34 x10^3/uL (1.4-6.9); Basophil (Absolute #) 0.02 x10^3/uL (0-0.4); Eosinophil % 1.1 % (0.00-5.0); Eosinophil (Absolute #) 0.09 x10^3/uL (0-0.5); Hematocrit 34.5 % (35-47); Hemoglobin 11.4 g/dL (12.0-16.0); Lymphocyte (Absolute #) 1.31 x10^3/uL (1.0-4.6); Lymphocytes % 15.3 % (24.0-44.0); Mean Cell Volume 94.8 fL (78-100); Mean Corpuscular Hemoglobin 31.3 pg (26-32); Mean Platelet Volume 10.6 fL (7.5-11.0); Monocyte (Absolute #) 0.77 x10^3/uL (0.0-1.3); Neutrophil % 74.2 % (36.0-66.0); Platelet Count 200 x10^3/uL (150-450); Red Blood Count 3.64 x10^6/uL (4.1-5.4); Red Cell Distribution Width 11.9 % (11.5-14.0); White Blood Count 8.6 x10^3/uL (4.0-10.5)
[2022-04-21 13:36] LABS: ALBUMIN 3.9 g/dL (3.5-5.0); ALKALINE PHOSPHATASE 57 U/L (38-126); ANION GAP 7.8 MEQ/L (5-15); BLOOD UREA NITROGEN 7 mg/dL (7-17); CHLORIDE 105 mmol/L (98-107); Calcium 8.6 mg/dL (8.4-10.2); Carbon Dioxide 28 mmol/L (22-30); Creatinine 1 0.47 mg/dL (0.52-1.04); EST GLOMERULAR FILTRATION RATE > 60.0 ML/MIN; Glucose 91 mg/dL (74-106); Potassium 3.6 mmol/L (3.5-5.1); SGOT/AST 43 U/L (14-36); SGPT/ALT 27 U/L (0-35); SODIUM 137 mmol/L (137-145); Total Protein 6.8 g/dL (6.3-8.2)
[2022-04-21] MEDS ORDERED: Zofran 4 MG/2 ML VIAL ONE (13:41)
[2022-04-21] MEDS ORDERED: Hydromorphone 1 mg/ml Injection ONE (13:42)
[2022-04-21] MEDS ORDERED: Sodium Chloride 0.9% 500 ML 500 ML IV ONE ×2 (13:49→14:48)
--- NOTE | 2022-04-21 14:46 | XRAY ---
Indication: Left chest pain. Elevated d-dimer. Status post partial hysterectomy April 19, 2022. Multiple contiguous axial images obtained through the chest using 80 cc Isovue 370 contrast and PE protocol. Comparison: None Adequate opacification of the pulmonary arteries to include the lobar and segmental branches. No pulmonary embolus. Heart not enlarged. Aorta is normal in course and caliber. No pathologic mediastinal/hilar lymphadenopathy. Lungs demonstrates minimal bilateral dependent atelectasis greater in both lung bases. No suspicious pulmonary mass/nodule, infiltrate, effusion, or pneumothorax. Bony thorax intact. Limited upper abdomen demonstrates tiny free air presumed related to recent surgery. Impression: 1. Negative pulmonary embolus. No acute cardiopulmonary abnormalities. 2. Tiny abdominal free air presumed related to recent surgery.
[2022-04-21 14:48] VITALS: BP 113/78; O2SAT 97
[2022-04-21 15:55] VITALS: PULSE 82
== END 2022-04-21 15:54 | disposition home or self-care (01) ==
LOC: ED 12:22
DX: M25.511 Pain in right shoulder (principal); M25.512 Pain in left shoulder; Z79.891 Long term (current) use of opiate analgesic
CPT/HCPCS: 36000; 36415; 71260; 80053; 85025; 85379; 93005; 96374; 96375; 99284; J1170; J2405